=== PATIENT | female | born 1950 | race American Indian/Alaskan Native ===

== ENCOUNTER → 2018-07-19 12:50 | Outpatient (CLI) | payer MEDICARE, OTHER, SELFPAY ==
--- NOTE | 2018-07-19 | DI.MG.S_ITS ---
BILATERAL DIGITAL DIAGNOSTIC MAMMOGRAM 3D/2D POST LUMPECTOMY: 07/19/2018 CLINICAL: Patient reports left axillary pain for the past 2-3 months that radiates along the lateral left breast, described as constant and feeling like a pulled muscle. Patient denies any skin changes or discharge per technologist. Comparison is made to exams dated: 05/26/2017 mammogram, 12/17/2016 mammogram, and 02/28/2015 mammogram - [facility]. There are scattered fibroglandular elements in both breasts. There is a square marker overlying the skin of the left axilla/lateral left breast at the site of the patient's reported focal pain. There is no underlying mammographic abnormality. There are bilateral vascular calcifications. There are stable probable postsurgical changes/metallic densities in the right breast. No significant masses, calcifications, or other findings are seen in either breast. IMPRESSION: INCOMPLETE: NEEDS ADDITIONAL IMAGING EVALUATION No mammographic abnormality to correlate with the site of the patient's reported focal left axillary and lateral left breast pain. Targeted diagnostic ultrasound recommended for further evaluation, which will be performed immediately following this exam. This exam was interpreted at Station ID: [id number]. NOTE: For mammograms, a report in lay terms will be sent to the patient. Approximately 15% of breast malignancies will not be visualized mammographically. In the management of a palpable breast mass, a negative mammogram must not discourage biopsy of a clinically suspicious lesion. Electronically Signed By: Regino Garcia M.D. ecl/:07/19/2018 13:48:37 copy to: [facility] letter sent: Additional Imaging Needed ACR BI-RADS Category 0: Incomplete 3340F
--- NOTE | 2018-07-19 | DI.US.S_ITS ---
LIMITED ULTRASOUND OF LEFT BREAST AND AXILLA: 07/19/2018 CLINICAL: Patient reports left axillary pain for the past 2-3 months that radiates along the lateral left breast, described as constant and feeling like a pulled muscle. Patient denies any skin changes or discharge per technologist. Comparison is made to exams dated: 07/19/2018 mammogram, 05/26/2017 ultrasound, 05/26/2017 mammogram, and 12/17/2016 mammogram - [facility]. Real-time and Doppler ultrasound of the left breast outer aspect and axilla regions were performed. Muller scale images of the real-time examination were reviewed. Targeted ultrasound of the left axilla and lateral left breast was performed in the region of the patient's reported focal pain. No underlying breast mass or abnormality is identified. IMPRESSION: NEGATIVE 1) No ultrasound findings to explain patient's reported focal pain in the left axilla and lateral left breast. Recommend clinical follow-up for further evaluation and management of the patient's reported symptoms. 2) There is no sonographic evidence of malignancy in the imaged left breast and axilla. Return to annual screening mammography is recommended. The patient is advised to monitor her breasts and to return sooner for re-evaluation should she feel anything grow or change. This exam was interpreted at Station ID: [id number]. Electronically Signed By: Regino Garcia M.D. ecl/:07/19/2018 15:09:52 copy to: [facility] letter sent: Clinical Evaluation Ultrasound BI-RADS: 1 Negative
== END ==
PROVIDERS: Visit Provider Family Medicine
DX: R92.8 Other abnormal and inconclusive findings on diagnostic imaging of breast (principal); N64.4 Mastodynia
CPT/HCPCS: 76642; 77066; G0279

== ENCOUNTER → 2018-09-07 11:52 | Outpatient (CLI) | payer MEDICARE, OTHER, SELFPAY ==
--- NOTE | 2018-09-07 | DI.RAD.S_ITS ---
PROCEDURE: XR CHEST 2V INDICATIONS: Acute Bronchitis TECHNIQUE: 2 views of the chest were acquired. COMPARISON: [facility], , CHEST 2 VIEW, 09/09/2011, 15:05. FINDINGS: Surgical changes and devices: None. Lungs and pleura: No pleural effusions or pneumothorax. Increased bronchovascular markings in bilateral hilar region are seen with mild bronchial wall thickening consistent with patient's history of bronchitis. No focal infiltrate is seen. Mediastinum: Mediastinal contours are normal. Heart size is normal. Bones and chest wall: No suspicious bony abnormalities. Soft tissues appear unremarkable. IMPRESSION: Findings consistent with reactive airway disease such as bronchitis. No focal infiltrate. Dictated by: Diego Iyer M.D. on 09/07/2018 at 12:40 Approved by: Diego Iyer M.D. on 09/07/2018 at 12:42
== END ==
PROVIDERS: Visit Provider Family Medicine
DX: J20.9 Acute bronchitis, unspecified (principal)
CPT/HCPCS: 71046

== ENCOUNTER → 2019-06-19 17:00 | Outpatient (CLI) | payer MEDICARE, OTHER, SELFPAY ==
--- NOTE | 2019-06-19 18:13 | DI.RAD.S_ITS ---
PROCEDURE: XR CHEST 2V INDICATIONS: CHRONIC COUGH TECHNIQUE: 2 views of the chest were acquired. COMPARISON: [facility], CR, XR CHEST 2V, 09/07/2018, 12:08. FINDINGS: Surgical changes and devices: Surgical clips in the right upper abdomen and axilla are again noted. Surgical clips in the right breast are also noted. Lungs and pleura: Previously noted increased bronchovascular markings in the perihilar region with perihilar airway thickening does not appear as prominent on today's evaluation. No focal consolidations. Lungs are otherwise clear. No pleural effusions or pneumothorax. Mediastinum: Mediastinal contours are normal. Heart size is normal. Bones and chest wall: No suspicious bony abnormalities. Soft tissues appear unremarkable. IMPRESSION: Chest without acute cardiopulmonary abnormalities. No focal airspace disease. Dictated by: Malick Dejesus M.D. on 06/20/2019 at 12:50 Approved by: Malick Dejesus M.D. on 06/20/2019 at 12:54
== END ==
PROVIDERS: Visit Provider Physician Assistant
DX: R05 Cough (principal)
CPT/HCPCS: 71046

== ENCOUNTER → 2019-06-25 08:39 | Outpatient (CLI) | payer MEDICARE, OTHER, SELFPAY ==
--- NOTE | 2019-06-25 | DI.CT.S_ITS ---
PROCEDURE: CT CHEST WO CON INDICATIONS: CHRONIC COUGH TECHNIQUE: Noncontrast 5 mm thick sections acquired from the pulmonary apices to the posterior costophrenic angles. 1 mm lung window, 5 mm thick coronal and sagittal and 7 mm axial MIP reformats were then acquired. For radiation dose reduction, the following was used: automated exposure control, adjustment of mA and/or kV according to patient size. COMPARISON: [facility], CT, ABDOMEN/PELVIS WITH CONTRAST, 07/04/2012, 13:04. FINDINGS: Image quality: Excellent. Lungs and pleura: No acute consolidation. 2 mm nodule seen in the left upper lobe on image 137 series 3 is indeterminate and could be followup with one-year interval noncontrast chest CT. No pleural effusions or pneumothorax. Central and peripheral airways are patent and normal in caliber. Mediastinum: Heart size is normal. Coronary artery calcifications are present. No pericardial effusion. No mediastinal adenopathy by size criteria. Thoracic aorta and central pulmonary arteries are normal in size. Esophagus is normal in caliber. No hiatal hernia. Bones and chest wall: No suspicious bony lesions. No vertebral body compression fractures. No axillary or supraclavicular adenopathy by size criteria. Thyroid gland unremarkable. Abdomen: Mild questionable circumferential wall thickening of the lower esophagus although this could be better assessed with endoscopy if there is sufficient clinical suspicion. Presumed hypoattenuating hepatic cysts appear grossly unchanged at 2012 IMPRESSION: No acute consolidation. Indeterminate 2 mm left upper lobe pulmonary nodule which could be assessed with one-year interval noncontrast chest CT surveillance. Coronary artery disease. Additional chronic and incidental findings as above. Dictated by: Luis Alfredo Macdonald M.D. on 06/25/2019 at 13:29 Approved by: Luis Alfredo Macdonald M.D. on 06/25/2019 at 13:38
== END ==
PROVIDERS: PCP Family Medicine; Visit Provider Physician Assistant
DX: R05 Cough (principal); R91.1 Solitary pulmonary nodule; I25.10 Atherosclerotic heart disease of native coronary artery without angina pectoris
CPT/HCPCS: 71250

== ENCOUNTER → 2020-04-30 11:07 | Outpatient (CLI) | payer MEDICARE, OTHER, SELFPAY ==
--- NOTE | 2020-04-30 | DI.MG.S_ITS ---
BILATERAL DIGITAL SCREENING MAMMOGRAM 3D/2D WITH CAD POST LUMPECTOMY: 04/30/2020 CLINICAL: Routine screening. Breast cancer. Comparison is made to exams dated: 07/19/2018 mammogram, 12/17/2016 mammogram, 02/28/2015 mammogram, and 05/26/2017 mammogram - [facility]. There are scattered fibroglandular elements in both breasts. Current study was also evaluated with a Computer Aided Detection (CAD) system. There are benign post operative findings in the right breast. No significant masses, calcifications, or other findings are seen in either breast. There has been no significant interval change. IMPRESSION: BENIGN There is no mammographic evidence of malignancy. A 1 year screening mammogram is recommended. This exam was interpreted at Station ID: [id number]. NOTE: For mammograms, a report in lay terms will be sent to the patient. Approximately 15% of breast malignancies will not be visualized mammographically. In the management of a palpable breast mass, a negative mammogram must not discourage biopsy of a clinically suspicious lesion. Electronically Signed By: Sven gambino/elisa:04/30/2020 11:49:36 copy to: [facility] letter sent: Normal Exam ACR BI-RADS Category 2: Benign Finding(s) 3342F
== END ==
PROVIDERS: PCP Family Medicine; Referring Provider Family Medicine; Visit Provider Family Medicine
DX: Z12.31 Encounter for screening mammogram for malignant neoplasm of breast (principal); Z85.3 Personal history of malignant neoplasm of breast
CPT/HCPCS: 77063; 77067

== ENCOUNTER → 2020-08-11 12:20 | Outpatient (CLI) | payer MEDICARE, OTHER, SELFPAY ==
--- NOTE | 2020-08-11 | DI.RAD.S_ITS ---
PROCEDURE: XR HIP W PEL IF DONE LT MIN 4V INDICATIONS: LT HIP PAIN TECHNIQUE: AP pelvis with lateral view(s) of the left and right hip(s). COMPARISON: None. FINDINGS: Bones: No fractures or dislocations. Lumbar spine fixation hardware partially visualized. Pelvic ring appears intact. No suspicious bony lesions. Mild bilateral hip joint degeneration. Soft tissues: The visualized bowel gas pattern is normal. No suspicious soft tissue calcifications. IMPRESSION: Mild bilateral hip joint degeneration Dictated by: Luis Alfredo Macdonald M.D. on 08/11/2020 at 13:34 Approved by: Luis Alfredo Macdonald M.D. on 08/11/2020 at 13:43
== END ==
PROVIDERS: PCP Family Medicine; Referring Provider Family Medicine; Visit Provider Family Medicine
DX: M25.552 Pain in left hip (principal); M16.0 Bilateral primary osteoarthritis of hip
CPT/HCPCS: 73522

== ENCOUNTER 2020-11-26 12:00 | Emergency (ER) | payer MEDICARE, OTHER, SELFPAY ==
[2020-11-26 12:16] VITALS: BP 188/85; PULSE 65; RESP 18; TEMP 36.2; O2SAT 97; BMI 43.4
--- NOTE | 2020-11-26 12:42 | DI.CT.S_ITS ---
PROCEDURE: CT HEAD/BRAIN WO CON INDICATIONS: dizzy TECHNIQUE: Noncontrast 4.5 mm thick angled axial sections acquired from the foramen magnum to the vertex, with coronal and sagittal reformats. For radiation dose reduction, the following was used: automated exposure control, adjustment of mA and/or kV according to patient size. COMPARISON: [facility]ated [facility], CT, HEAD WITHOUT CONTRAST, 10/06/2017, 9:44. FINDINGS: Image quality: Excellent. CSF spaces: Basal cisterns are patent. No extra-axial fluid collections. Ventricles are normal in size and shape. Brain: No midline shift. No intracranial masses or hemorrhage. Muller-white matter interface is normal. Skull and face: Calvarium and visualized facial bones are intact, without suspicious lesions. Sinuses: Visualized sinuses and mastoids are clear. IMPRESSION: No acute intracranial finding. Dictated by: Alfonso Mcarthur M.D. on 11/26/2020 at 12:55 Approved by: Alfonso Mcarthur M.D. on 11/26/2020 at 12:56
[2020-11-26 12:50] LABS: Add Manual Diff / Slide Review NO; Basophils Absolute Auto 0 /uL (0-100); Basophils Percent Auto 0.6 % (0-2); Eosinophils Absolute Auto 0 /uL (0-450); Eosinophils Percent Auto 0.2 % (2-4); Hematocrit 41.3 % (36-46); Hemoglobin 14.2 g/dL (12.0-16.0); Lymphocytes Absolute Auto 1700 /uL (1100-4500); Lymphocytes Percent Auto 31.8 % (25-40); Mean Corpuscular HGB Conc 34.3 % (30-36); Mean Corpuscular Hemoglobin 29.9 PG (26-34); Mean Corpuscular Volume 87.2 fL (80-100); Monocytes Absolute Auto 700 /uL (0-900); Monocytes Percent Auto 13.4 % (3-14); Neutrophils Absolute Auto 3000 /uL (1500-7000); Platelet Count 258 X10^3/uL (150-400); Red Blood Cell Count 4.73 X10^6/uL (4.0-5.2); Red Cell Distribution Width 13.4 % (11.6-14.8); White Blood Cell Count 5.5 X10^3/uL (4.5-11.0)
[2020-11-26 12:55] LABS: Lipase 93 U/L (23-300)
[2020-11-26 12:56] LABS: Alanine Aminotransferase 47 IU/L (<35); Albumin 4.5 g/dL (3.5-5.0); Albumin Globulin Ratio 1.4 (1.0-2.8); Alkaline Phosphatase 146 U/L (38-126); Aspartate Aminotransferase 42 IU/L (14-36); BUN Creatinine Ratio 18.4 (6-22); Bilirubin Total 0.5 mg/dL (0.2-1.3); Blood Urea Nitrogen 14 mg/dL (7-17); Calcium 9.7 mg/dL (8.4-10.2); Carbon Dioxide 27 mmol/L (22-32); Chloride 107 mmol/L (98-107); Creatine Kinase 79 U/L (30-135); Estimated Glomerular Filt Rate > 60.0 mL/min (>60); Globulin 3.2 g/dL (1.7-4.1); Glucose 118 mg/dL (80-110); HEMOLYSIS < 15 (0-50); Potassium 3.8 mmol/L (3.4-5.1); Sodium 141 mmol/L (137-145); Total Protein 7.7 g/dL (6.3-8.2)
--- NOTE | 2020-11-26 13:04 | ED_ITS ---
HPI - Dizziness General Chief Complaint: Dizziness Stated Complaint: SOB and R ear pain Time Seen by Provider: 11/26/20 12:28 Source: patient and EMS Mode of arrival: EMS Limitations: no limitations History of Present Illness HPI Narrative: Patient is a 70-year-old female history of vertigo presenting with dizziness and right ear pain which started yesterday morning. She says the dizziness significantly worse with movement but does improve when she lays still. Typically when she has vertigo she lays with her head off the bed and it gets better. That was not working. She went to her primary care provider's office today today who sent her to the ER for further evaluation. She says this is not her typical vertigo. She feels nauseated she has not vomited. She denies any chest pain palpitations or shortness of breath. She does no numbness tingling or weakness facial droop or difficulty speaking. MD complaint: dizziness Onset (ago): day(s) (1) Timing: sudden onset Description: room spinning History of similar episodes: Yes History of trauma: No Severity: moderate Related Data Previous Rx's Medication Instructions Recorded triamterene-hydrochlorothiazid 1 cap PO QDAY #90 cap 05/31/17 [Dyazide] oxybutynin chloride 2.5 mg PO BID #30 tab 11/01/17 doxycycline hyclate 100 mg PO BID #40 tab 11/17/17 levothyroxine 88 mcg tablet 88 mcg PO SEE INSTRUCTIONS #30 tab 01/30/18 omeprazole 40 mg capsule,delayed 40 mg PO HS #30 cap 01/30/18 release atenolol 50 mg tablet 50 mg PO QDAY #90 tab 02/28/18 potassium chloride 20 mEq 20 meq PO DAILY #30 tab 04/04/18 tablet,extended release(part/cryst) ciprofloxacin-dexamethasone 4 drp EAR-RIGHT BID 7 Days #7.5 ml 11/26/20 meclizine 25 mg PO TID PRN #10 tab 11/26/20 ondansetron 4 mg PO Q8H PRN #10 tab 11/26/20 Allergies Allergy/AdvReac Type Severity Reaction Status Date / Time adhesive [ADHESIVE] Allergy Mild ITCHING Unverified 01/04/18 13:02 hydrocodone [HYDROCODONE] Allergy Mild VOMITING Unverified 01/04/18 13:02 oxycodone [OXYCODONE] Allergy Mild VOMITING Unverified 01/04/18 13:02 Penicillins [PENICILLINS] Allergy Mild YEAST Unverified 01/04/18 13:02 INFECTION Review of Systems Review of Systems ROS Unobtainable: All systems reviewed & are unremarkable except as noted in HPI and below Constitutional Constitutional: Denies chills, Denies fever(s), Denies lethargy and Denies weakness ENT Ears, Nose, Mouth, and Throat: Reports dizziness Cardiovascular Cardiovascular: Denies chest pain, Denies rapid heart rate, Denies irregular heart rhythm, Denies dyspnea and Denies dyspnea on exertion Respiratory Respiratory: Denies cough, Denies dyspnea, Denies dyspnea on exertion and Denies wheezing Gastrointestinal Gastrointestinal: Denies abdominal pain, Denies change in bowel habits, Denies diarrhea, Denies nausea and Denies vomiting Musculoskeletal Musculoskeletal: Denies myalgias and Denies muscle cramps Integumentary/Breasts Skin/Breast: Denies pruritus, Denies erythema, Denies rash and Denies wounds Neurologic Neurologic: Reports as per HPI, Reports dizziness, Denies lack of coordination, Denies localized weakness, Denies restless legs and Denies weakness Allergic/Immunologic Allergic/Immunologic: Denies wheezing Patient History Surgical History Status post breast lumpectomy Status post dilation and curettage Status post dilation and curettage Status post hysteroscopy Social History Smoking Status: Never smoker Smoking Status: Never smoker Substance Use Type: does not use Exam Initial Vital Signs Initial Vital Signs: Vital Signs Temperature 97.2 F L 11/26/20 12:16 Pulse Rate 65 11/26/20 12:16 Respiratory Rate 18 11/26/20 12:16 Blood Pressure 188/85 H 11/26/20 12:16 Pulse Oximetry 97 11/26/20 12:16 GENERAL: Well-appearing, well-nourished and in no acute distress. HEENT: Head atraumatic,EOMI, pupils reactive, face symmetric, moist mucous membranes EAR: Right here mild drainage in whiteness no erythema slight tenderness to the external ear mild swelling of the canal CARDIOVASCULAR: Regular rate and rhythm without murmurs, rubs or gallops. RESPIRATORY: Breath sounds equal bilaterally, no wheezes rales or rhonchi. ABDOMEN: Soft, nontender. Normoactive bowel sounds all 4 quadrants. No guardin g or rebound. EXTREMITIES: Normal range of motion, no clubbing or edema. Neurovascularly intact NEUROLOGICAL: Alert and oriented x4.Normal gait and speech. Cranial nerves II through XII grossly intact. Good [id number], good [id number], strength equal bilaterally, no dysarthria or aphasia, sensation in tact to soft touch bilaterally, no visual changes, no facial droop SKIN: Warm, dry, no laceration, no petechiae, no rashes or lesions. Scores NIH Stroke Scale Level of Conciousness: Alert, keenly responsive Ask month/age: Answers both questions correctly. Open/close eyes, close hand: Performs both tasks correctly Best gaze horizontal: Normal Visual elizodno: No visual loss Facial palsy: Normal symetrical movement Left arm drift: No drift for full 10 sec Right arm drift: No drift for full 10 sec Left leg drift: No drift for full 5 sec Right leg drift: No drift for full 5 sec Limb ataxia: Absent Sensory on face/arms/legs: Normal, no sensory loss Best language: No aphasia, normal Dysarthria: Normal Extinction or inattention: No abnormality Total NIH Stroke scale score: 0 Course Orders Ordered: ED Orders 11/26/20 12:02 EKG-12 Lead Routine 11/26/20 12:33 Complete Blood Count AUTO DIFF Stat Comprehensive Metabolic Panel Stat Lipase Stat Troponin & CK Cardiac Panel Stat 11/26/20 12:42 CT head/brain wo con Stat Discontinued Medications Sodium Chloride (Normal Saline 0.9%) 1,000 mls @ 1,000 mls/hr IV CONT JAZ Last Infusion: 11/26/20 14:38 Dose: 0 mls/hr Documented by: Admin: 11/26/20 13:14 Dose: 1,000 mls/hr Documented by: DAJUANONER Meclizine HCl (Meclizine Hcl 12.5 Mg Tablet) 25 mg PO NOW ONE Stop: 11/26/20 12:38 Last Admin: 11/26/20 13:15 Dose: 25 mg Documented by: FABRICIOR Ondansetron HCl (Ondansetron 4 Mg/2 Ml Inj) 4 mg IV NOW ONE Stop: 11/26/20 12:59 Last Admin: 11/26/20 13:14 Dose: 4 mg Documented by: BTONER Vital Signs Vital signs: Vital Signs - 8 hr 11/26/20 12:16 11/26/20 15:20 11/26/20 16:00 Temperature 97.2 F L Pulse Rate 65 60 62 Respiratory Rate 18 18 18 Blood Pressure 188/85 H 169/76 H 164/73 H Pulse Oximetry 97 99 99 MDM - Dizziness Lab Data Attestation: I reviewed the patient's lab results. Result diagrams: 11/26/20 12:33 11/26/20 12:33 Labs: Lab Results 11/26/20 11/26/20 11/26/20 Range/Units 12:33 12:33 12:33 WBC 5.5 (4.5-11.0) X10^3/uL RBC 4.73 (4.0-5.2) X10^6/uL Hgb 14.2 (12.0-16.0) g/dL Hct 41.3 (36-46) % MCV 87.2 (80-100) fL MCH 29.9 (26-34) PG MCHC 34.3 (30-36) % RDW 13.4 (11.6-14.8) % Plt Count 258 (150-400) X10^3/uL Neut % (Auto) 54.0 (50-75) % Lymph % (Auto) 31.8 (25-40) % [place] % (Auto) 13.4 (3-14) % Eos % (Auto) 0.2 L (2-4) % Baso % (Auto) 0.6 (0-2) % Neut # (Auto) 3000 (2908-0497) /uL Lymph # (Auto) 1700 (9761-5172) /uL [place] # (Auto) 700 (0-900) /uL Eos # (Auto) 0 (0-450) /uL Baso # (Auto) 0 (0-100) /uL Sodium 141 (137-145) mmol/L Potassium 3.8 (3.4-5.1) mmol/L Chloride 107 (98-107) mmol/L Carbon Dioxide 27 (22-32) mmol/L BUN 14 (7-17) mg/dL Creatinine 0.76 (0.52-1.04) mg/dL Estimated GFR > 60.0 (>60) mL/min BUN/Creatinine Ratio 18.4 (6-22) Glucose 118 H (80-110) mg/dL Calcium 9.7 (8.4-10.2) mg/dL Total Bilirubin 0.5 (0.2-1.3) mg/dL AST 42 H (14-36) IU/L ALT 47 H (<35) IU/L Alkaline Phosphatase 146 H (38-126) U/L Total Creatine Kinase 79 (30-135) U/L CK-MB (CK-2) TNP CK-MB (CK-2) Rel Index TNP Troponin I < 0.012 (0.01-0.034) ng/mL Total Protein 7.7 (6.3-8.2) g/dL Albumin 4.5 (3.5-5.0) g/dL Globulin 3.2 (1.7-4.1) g/dL Albumin/Globulin Ratio 1.4 (1.0-2.8) Lipase 93 (23-300) U/L Imaging Data CT scan - head: Radiologist's Impression: PROCEDURE: CT HEAD/BRAIN WO CON INDICATIONS: dizzy TECHNIQUE: Noncontrast 4.5 mm thick angled axial sections acquired from the foramen magnum to the vertex, with coronal and sagittal reformats. For radiation dose reduction, the following was used: automated exposure control, adjustment of mA and/or kV according to patient size. COMPARISON: Merged With [facility], CT, HEAD WITHOUT CONTRAST, 10/06/2017, 9:44. FINDINGS: Image quality: Excellent. CSF spaces: Basal cisterns are patent. No extra-axial fluid collections. Ventricles are normal in size and shape. Brain: No midline shift. No intracranial masses or hemorrhage. Muller-white matter interface is normal. Skull and face: Calvarium and visualized facial bones are intact, without suspicious lesions. Sinuses: Visualized sinuses and mastoids are clear. IMPRESSION: No acute intracranial finding. Dictated by: Alfonso Mcarthur M.D. on 11/26/2020 at 12:55 ECG Data Attestation: I personally reviewed and interpreted this ECG as follows: Prior ECG tracings: not available for review Interpretation: Normal sinus rhythm rate 66 p.r. interval 194 QRS [address] changes no T-wave inversions MDM Narrative Medical decision making narrative: Patient is overall feeling much better after meclizine she is ambulatory to the restroom without any difficulty. She has a history of vertigo this seems like it was exacerbated version of vertigo. She does have mild right otitis externa will start her on drops to see if it improves. She has no focal deficits. Overall feels better and ready and able to go home. Discharge Plan Departure Patient Disposition: Home Clinical Impression: Vertigo Otitis externa Qualifiers: Otitis externa type: diffuse Chronicity: acute Laterality: right Qualified Code(s): H60.311 - Diffuse otitis externa, right ear Instructions: DI for Vertigo Activity Restrictions/Additional Instructions: *You have been diagnosed with Vertigo *What to do: Increase activity as tolerated. Increase fluid intake *Continue to take medications as directed--> SENT TO [facility] Meclizine 25 mg every 8 hours if needed for dizziness Zofran 4 mg every 8 hours if needed for nausea or vomiting Cipro drops 4 drops in right ear twice a day for 7 days *Follow up with your primary care provider in 2-3 days *Return to ER if you should have worsening dizziness, chest pain, palpitation or any new, worsening or concerning symptoms Prescriptions: New ondansetron 4 mg tablet,disintegrating 4 mg PO Q8H PRN (Reason: nausea and vomiting) Qty: 10 RF: 0 meclizine 25 mg tablet 25 mg PO TID PRN (Reason: dizziness) Qty: 10 RF: 0 ciprofloxacin-dexamethasone 0.3-0.1 % drops,suspension 4 drp EAR-RIGHT BID 7 Days Qty: 7.5 RF: 0 No Action triamterene-hydrochlorothiazid [Dyazide] 37.5 MG/25 MG capsule 1 cap PO QDAY Qty: 90 RF: 3 oxybutynin chloride 5 MG tablet 2.5 mg PO BID Qty: 30 RF: 11 doxycycline hyclate 100 MG tablet 100 mg PO BID Qty: 40 RF: 0 omeprazole 40 mg capsule,delayed release(DR/EC) 40 mg PO HS Qty: 30 RF: 5 levothyroxine 88 mcg tablet 88 mcg PO SEE INSTRUCTIONS Qty: 30 RF: 11 atenolol 50 mg tablet 50 mg PO QDAY Qty: 90 RF: 3 potassium chloride [Klor-Con M20] 20 mEq tablet,ER particles/crystals 20 meq PO DAILY Qty: 30 RF: 2 Referrals: Garfield Edwards MD [Primary Care Provider] -
[2020-11-26 13:07] LABS: Troponin I < 0.012 ng/mL (0.01-0.034)
[2020-11-26] MEDS: ONDANSETRON 4 MG/2 ML INJ IV (13:14)
[2020-11-26] MEDS: SODIUM CHLORIDE 0.9% 1,000 ML 1000 ML IV (13:14)
[2020-11-26] MEDS: MECLIZINE HCL 12.5 MG TABLET 25 MG PO (13:15)
--- NOTE | 2020-11-26 14:28 | PC.NURSE ---
offered to move pt to a private room, she said she was comfortable where she is, she is feeling better.
[2020-11-26 15:20] VITALS: BP 169/76; PULSE 60; RESP 18; O2SAT 99
[2020-11-26 16:00] VITALS: BP 164/73; PULSE 62; RESP 18; O2SAT 99
== END 2020-11-26 16:02 | disposition home or self-care (01) ==
PROVIDERS: Emergency Provider Emergency Medicine; PCP Family Medicine
DX: R42 Dizziness and giddiness (principal); H60.311 Diffuse otitis externa, right ear
CPT/HCPCS: 36415; 70450; 80053; 82550; 83690; 84484; 85025; 93005; 96361; 96374; 99284; J2405

== ENCOUNTER → 2021-01-07 13:34 | Outpatient (CLI) | payer MEDICARE, OTHER, SELFPAY ==
--- NOTE | 2021-01-07 | DI.MG.S_ITS ---
BILATERAL DIGITAL DIAGNOSTIC MAMMOGRAM 3D/2D POST LUMPECTOMY: 01/07/2021 CLINICAL: Right breast lump. Comparison is made to exams dated: 04/30/2020 mammogram, 07/19/2018 mammogram, and 12/17/2016 mammogram - [facility]. There are scattered fibroglandular elements in both breasts. There is a 1.2 cm irregular high density mass with a spiculated margin in the right breast at 11 o'clock middle depth. This is confirmed with additional views. This has increased considerably in size and correlates as palpated. There is architectural distortion associated with the mass. No other significant masses, calcifications, or other findings are seen in either breast. IMPRESSION: INCOMPLETE: NEEDS ADDITIONAL IMAGING EVALUATION The 1.2 cm irregular high density mass in the right breast is suspicious for malignancy, but remains indeterminate. An ultrasound is recommended. This was performed immediately following this exam. This exam was interpreted at Station ID: [id number]. NOTE: For mammograms, a report in lay terms will be sent to the patient. Approximately 15% of breast malignancies will not be visualized mammographically. In the management of a palpable breast mass, a negative mammogram must not discourage biopsy of a clinically suspicious lesion. Electronically Signed By: Jayashree ayala/:01/07/2021 14:31:13 copy to: [facility] BI-RADS Category 0: Incomplete [id number]
--- NOTE | 2021-01-07 | DI.US.S_ITS ---
LIMITED ULTRASOUND OF RIGHT BREAST AND AXILLA: 01/07/2021 CLINICAL: Palpable right breast lump. Comparison is made to exams dated: 01/07/2021 mammogram, 04/30/2020 mammogram, 07/19/2018 ultrasound, 07/19/2018 mammogram, 05/26/2017 ultrasound, and 05/26/2017 mammogram - [facility]. Color flow and real-time ultrasound of the right breast 11 o'clock, and axilla regions were performed. Muller scale images of the real-time examination were reviewed. There is a 1.2 cm x 1.2 cm x 2 cm irregular mass with a spiculated margin in the right axillary tail 7 cm from the nipple. This irregular mass displays posterior acoustic shadowing. This correlates as palpated and with mammography findings. Color flow imaging demonstrates that there is vascularity present. No suspicious axillary lymph nodes. IMPRESSION: SUSPICIOUS OF MALIGNANCY The 1.2 cm x 1.2 cm x 2 cm irregular mass most likely is carcinoma and is at a high suspicion for malignancy. An ultrasound guided biopsy is recommended. Findings and recommendations were discussed with the patient by Dr. Flaherty at time of exam. This exam was interpreted at Station ID: [id number]. Electronically Signed By: Jayashree ayala/:01/07/2021 17:13:41 copy to: HARDY HARMON letter sent: Biopsy Required Ultrasound BI-RADS: 4c High suspicion of malignancy
== END ==
PROVIDERS: PCP Family Medicine; Referring Provider Family Medicine; Visit Provider Family Medicine
DX: R92.8 Other abnormal and inconclusive findings on diagnostic imaging of breast (principal); N63.31 Unspecified lump in axillary tail of the right breast
CPT/HCPCS: 76642; 77066; G0279

== ENCOUNTER → 2021-01-16 07:38 | Outpatient (CLI) | payer MEDICARE, OTHER, SELFPAY ==
--- NOTE | 2021-01-16 | PATH_ITS ---
[facility] Accession Number: [id number] . 01 Material submitted: . breast - RIGHT BREAST MASS 11:00 7CMFN . 01 Diagnosis: A. Right Breast Mass, 11 o'clock, 7 cm from the Nipple, Needle Core Biopsy: Invasive (ductal) carcinoma, grade 2 of 3 ([place] combined histologic grade, total score 7/9) with the following features: 1. Nuclear pleomorphism: High. (3/3) 2. Mitotic rate: Low. (1/3) 3. Tubular differentiation: None. (3/3) 4. Size of invasive carcinoma: Present on six cores, single largest dimension at least 9 mm in this sample. 5. Ductal carcinoma in situ: Present, with the following features: - Nuclear grade: High. - Necrosis: Present (small foci). 6. Calcifications: Present, in association with ductal carcinoma in situ. 7. Lymphatic invasion: Not identified. 8. Prognostic markers: - Estrogen receptor: Positive (>90%, Strong). - Progesterone receptor: Positive (10%, Weak). - HER2 status: Positive for protein overexpression by immunohistochemistry (3+). [facility] 01/20/2021 2346 Local . 01 Comment: Dr. Abbott reviewed the Her2 immunohistochemistry and concurs with the interpretation. . 01 Electronically signed: Agustina Cuevas MD, Pathologist NPI- [id number] . 01 Gross description: . Please note for breast formalin fixation time, the specimen was placed in formalin on 01/16/21 at 0913. . Received in formalin, labeled with the patient's name and right breast mass 1 o'clock 7 cm FN, are six cores of yellow-zavala fibrofatty breast tissue and multiple smaller fragments, 0.5-1.3 cm length, 0.3 cm diameter and 1.0 x 1.0 x 0.2 cm in aggregate. The specimen is entirely submitted. . SUMMARY OF SECTIONS: A1-A2. Three cores each. A3. Multiple pieces. (ID:[id number]) /R 01/17/2021 1903 Local . 01 Microscopic: . A panel of immunostains is obtained to assess the invasive carcinoma, with appropriately staining external controls. The invasive carcinoma shows the following immunoprofile: . E-Cadherin (A1): Positive (membranous), excluding lobular phenotype. Beta Catenin (A1): Positive (membranous), excluding lobular phenotype. . In addition, areas in blocks A1 and A2 with features suspicious for lymphatic space invasion, are evaluated with D2-40 and p63; the findings are as follows, and do not confirm lymphatic space invasion: . D2-40: Negative around atypical nests of interest. P63: Negative around atypical nests of interest. . Predictive marker immunohistochemical studies are performed on block A2 with the invasive carcinoma showing the following results: . Estrogen receptor (SP1): Positive (more than 90% tumor cells staining, strong intensity). Progesterone receptor (1E2): Positive (10% tumor cells staining, weak intensity). Her2(4B5): Positive for protein overexpression by immunohistochemistry (3+). . Internal controls for ER and UT are positive. Cold ischemic time is <5 minutes. The scoring criteria for breast biomarkers by immunohistochemistry is based on the ASCO/CAP guidelines (Flakita AC et al, J Clin Oncol: 2017Apr 04;36(20):8709-8482 and Cisco ME et al, Arch Pathol Lab Med: 2009;134(6):907-22). Deparaffinized sections of formalin fixed tissue (along with appropriate positive controls) are incubated with the above antibody(s). Using the automated [place] stainer, tissue is incubated with the designated antibody which is then localized by a non-biotin, dual polymer detection system. The external controls are reviewed for appropriate reactivity and found to be adequate. Results on the target cell population are indicated above. These tests have not been validated on decalcified tissue. This test was developed and its performance characteristics determined by [employer]. It has not been cleared or approved by the U.S. Food and Drug Administration. The FDA has determined that such clearance or approval is not necessary. This test is used for clinical purposes. It should not be regarded as investigational or for research. . 01 Pathologist provided ICD-10: C50.911 . 01 CPT . 400995, 109106, 861887, 092623, O74126, S32324 Performed at: [address] [facility] [place], [place], [place] [id number] MD Jose Angel Du MD Phone: [phone]
--- NOTE | 2021-01-16 | DI.MG.S_ITS ---
UNILATERAL RIGHT DIGITAL DIAGNOSTIC MAMMOGRAM POST LUMPECTOMY POST-EXCISIONAL BIOPSY: 01/16/2021 CLINICAL: Right breast mass. Comparison is made to exams dated: 01/07/2021 mammogram, 04/30/2020 mammogram, and 07/19/2018 mammogram - [facility]. There are scattered fibroglandular elements in right breast. There is a marker clip in the appropriate position in the right breast at 11 o'clock posterior depth. This marker clip placement is at the biopsy site. IMPRESSION: POST PROCEDURE MAMMOGRAM FOR MARKER PLACEMENT There was a successful marker clip placement in the right breast posterior depth. This exam was interpreted at Station ID: [id number]. NOTE: For mammograms, a report in lay terms will be sent to the patient. Approximately 15% of breast malignancies will not be visualized mammographically. In the management of a palpable breast mass, a negative mammogram must not discourage biopsy of a clinically suspicious lesion. Electronically Signed By: Luis Alfredo kong/:01/16/2021 14:58:40 copy to: HARDY HARMON ACR BI-RADS Category Post-procedure mammogram for marker placement
--- NOTE | 2021-01-16 | DI.US.S_ITS ---
ULTRASOUND GUIDED BIOPSY RIGHT BREAST USING VACUUM DEVICE WITH MARKING DEVICE INSERTED: 01/16/2021 CLINICAL: Right breast mass. PATIENT CONSENT: Risks (minor bleeding, infection, vasovagal reaction and repeat procedure), benefits and alternatives were explained to the patient and written informed consent was obtained. Correlation is made to exams dated: 01/16/2021 mammogram, 01/07/2021 ultrasound, 01/07/2021 mammogram, 04/30/2020 mammogram, 07/19/2018 mammogram, and 12/17/2016 mammogram - [facility]. An ultrasound guided biopsy using real-time ultrasound was performed for the mass located in the right breast at 11 o'clock posterior depth. The skin was prepped in the usual manner. Local anesthetic was administered to the access site. A small incision was made in the breast. The abnormality was approached from the lateral aspect. A biopsy needle was placed adjacent to the abnormality under ultrasound guidance. Once the needle was documented to be in the correct location, eight specimens were obtained using the Mammotome biopsy system. A clip was inserted into the biopsy cavity. The specimens were sent to the laboratory for pathological analysis. IMPRESSION: ULTRASOUND GUIDED BIOPSY MALIGNANT Ultrasound guided biopsy of the mass in the right breast at 11 o'clock posterior depth was successful. Pathology indicates malignant invasive ductal carcinoma (ID) and ductal carcinoma in situ (DCIS). Pathology results are concordant with imaging findings. A surgical/oncologic consultation is recommended. This exam was interpreted at Station ID: [id number]. Luis Alfredo kong,aty/:01/21/2021 18:25:36 copy to: HARDY HARMON
== END ==
PROVIDERS: PCP Family Medicine; Referring Provider Family Medicine; Visit Provider Family Medicine
DX: C50.411 Malignant neoplasm of upper-outer quadrant of right female breast (principal); Z17.0 Estrogen receptor positive status [ER+]
CPT/HCPCS: 19083; 77065

== ENCOUNTER → 2022-03-19 12:50 | Outpatient (CLI) | payer MEDICARE, OTHER, SELFPAY ==
--- NOTE | 2022-03-19 | DI.MG.S_ITS ---
UNILATERAL LEFT DIGITAL SCREENING MAMMOGRAM 3D/2D WITH CAD: 03/19/2022 CLINICAL: Routine screening. Personal history of right breast cancer. Comparison is made to exams dated: 10/08/2021 ultrasound - [facility], 01/16/2021 mammogram, 04/30/2020 mammogram, and 07/19/2018 mammogram - [facility]. There are scattered fibroglandular elements in left breast. Current study was also evaluated with a Computer Aided Detection (CAD) system. No significant masses, calcifications, or other findings are seen in the breast. There has been no significant interval change. IMPRESSION: NEGATIVE There is no mammographic evidence of malignancy. A 1 year screening mammogram is recommended. This exam was interpreted at Station ID: [id number]. NOTE: For mammograms, a report in lay terms will be sent to the patient. Approximately 15% of breast malignancies will not be visualized mammographically. In the management of a palpable breast mass, a negative mammogram must not discourage biopsy of a clinically suspicious lesion. Electronically Signed By: Alfonso Mcarthur M.D., jr/elisa:03/19/2022 13:42:02 copy to: HARDY HARMON letter sent: Normal Exam ACR BI-RADS Category 1: Negative [id number]
== END ==
PROVIDERS: PCP Family Medicine; Referring Provider Radiology Diagnostic Radiology; Visit Provider Radiology Diagnostic Radiology
DX: Z12.31 Encounter for screening mammogram for malignant neoplasm of breast (principal); Z85.3 Personal history of malignant neoplasm of breast
CPT/HCPCS: 77063; 77067

== ENCOUNTER → 2022-10-28 11:21 | Outpatient (CLI) | payer MEDICARE, OTHER, SELFPAY ==
--- NOTE | 2022-10-28 11:25 | DI.RAD.S_ITS ---
PROCEDURE: XR LUMBAR SPINE 2-3V INDICATIONS: back pain, bilateral hand and foot pain TECHNIQUE: 3 views of the lumbar spine were acquired. COMPARISON: [facility], , L-SPINE 2-3 VIEWS, 10/30/2013, 14:10. [facility], CR, L-SPINE 2-3 VIEWS, 02/21/2013, 12:16. FINDINGS: Bones: There are 5 lumbar type vertebral bodies. Right posterior fusion hardware with interbody spacers from L3-L5 with good osseous integration. Rsep-pj-bauojotj spondylosis is seen at the other levels. Trace retrolisthesis of L5 on S1 and anterolisthesis of L4 on L5. Soft tissues: Cholecystectomy clips. Moderate fecal loading. IMPRESSION: No acute radiographic abnormality. Expected appearance of L3-L5 fusion hardware. Riff-px-jbkqtuws spondylosis at the other levels. If there is high concern for further derangement, consider MRI evaluation. Dictated by: Mohit Jha M.D. on 10/28/2022 at 14:07 Approved by: Mohit Jha M.D. on 10/28/2022 at 14:08
--- NOTE | 2022-10-28 11:25 | DI.RAD.S_ITS ---
PROCEDURE: XR FOOT RT MIN 3V INDICATIONS: back pain, bilateral hand and foot pain TECHNIQUE: 3 views of the foot were acquired. COMPARISON: [facility], CR, XR FOOT LT MIN 3V, 10/28/2022, 12:51. FINDINGS: Bones: No acute fracture or dislocation visualized. Mild bunion deformity. Polyarticular degenerative changes present, moderate at the 1st MTP joint, mild midfoot DJD also present. Small plantar calcaneal spur. Possible mild tibiotalar joint degenerative changes also present. Soft tissues: No tibiotalar joint effusion. IMPRESSION: No acute osseous abnormality. If symptoms persist, follow-up radiographs and/or CT or MRI may be helpful for further evaluation. Dictated by: Sven Johnson M.D. on 10/28/2022 at 14:11 Approved by: Sven Johnson M.D. on 10/28/2022 at 14:13
--- NOTE | 2022-10-28 11:25 | DI.RAD.S_ITS ---
PROCEDURE: XR HAND LT MIN 3V INDICATIONS: back pain, bilateral hand and foot pain TECHNIQUE: 3 views of the hand(s) acquired. COMPARISON: [facility], CR, XR HAND RT MIN 3V, 10/28/2022, 12:45. FINDINGS: Bones: The bones appear demineralized. No acute fracture or dislocation visualized. Polyarticular degenerative changes present, moderate-severe, largely in a distal distribution involving the base of the thumb. Scattered periarticular lucencies also present indeterminate for subchondral cystic change or erosions. Soft tissues: No suspicious soft tissue calcifications. IMPRESSION: No acute fracture visualized. Polyarticular degenerative changes are present. If symptoms persist, follow-up radiographs and/or CT or MRI may be helpful for further evaluation. Dictated by: Sven Johnson M.D. on 10/28/2022 at 14:04 Approved by: Sven Johnson M.D. on 10/28/2022 at 14:07
--- NOTE | 2022-10-28 11:25 | DI.RAD.S_ITS ---
PROCEDURE: XR FOOT LT MIN 3V INDICATIONS: back pain, bilateral hand and foot pain TECHNIQUE: 3 views of the foot were acquired. COMPARISON: [facility], CR, XR FOOT RT MIN 3V, 10/28/2022, 12:53. [facility], CR, XR HAND RT MIN 3V, 10/28/2022, 12:45. FINDINGS: Bones: No acute fractures or dislocations. No suspicious bony lesions. The bones appear demineralized. Mild bunion deformity. Polyarticular degenerative changes, moderate at the 1st MTP joint, mild at the midfoot. Small plantar and posterior calcaneal spurs. Soft tissues: No tibiotalar joint effusion. IMPRESSION: No acute osseous abnormality. If symptoms persist, follow-up radiographs and/or CT or MRI may be helpful for further evaluation. Dictated by: Sven Johnson M.D. on 10/28/2022 at 14:07 Approved by: Sven Johnson M.D. on 10/28/2022 at 14:11
--- NOTE | 2022-10-28 11:25 | DI.RAD.S_ITS ---
PROCEDURE: XR THORACIC SPINE 2V INDICATIONS: back pain, bilateral hand and foot pain TECHNIQUE: To views of the thoracic spine were acquired. COMPARISON: None. FINDINGS: Bones: Mild overall thoracic spondylosis and minimal wedging of some vertebral bodies. No definitely acute abnormality. Soft tissues: Partially seen left port catheter in the SVC. There are surgical clips. IMPRESSION: Mild spondylosis. If there is high concern for further derangement, consider MRI evaluation. Dictated by: Mohit Jha M.D. on 10/28/2022 at 14:06 Approved by: Mohit Jha M.D. on 10/28/2022 at 14:06
--- NOTE | 2022-10-28 11:25 | DI.RAD.S_ITS ---
PROCEDURE: XR HAND RT MIN 3V INDICATIONS: back pain, bilateral hand and foot pain TECHNIQUE: 3 views of the hand(s) acquired. COMPARISON: [facility], CR, XR HAND LT MIN 3V, 10/28/2022, 12:48. FINDINGS: Bones: The bones appear demineralized. No acute fracture or dislocation identified. Polyarticular degenerative changes present, moderate-severe severity, largely in a distal distribution and at the base of the thumb. Periarticular lucencies also present indeterminate for subchondral cystic change or erosions. Soft tissues: No suspicious soft tissue calcifications. IMPRESSION: No acute fracture or dislocation identified. Polyarticular degenerative changes are present. If symptoms persist, follow-up radiographs and/or CT or MRI may be helpful for further evaluation. Dictated by: Sven Johnson M.D. on 10/28/2022 at 13:59 Approved by: Sven Johnson M.D. on 10/28/2022 at 14:04
== END ==
PROVIDERS: PCP Family Medicine; Referring Provider Physician Assistant; Visit Provider Physician Assistant
DX: M47.814 Spondylosis without myelopathy or radiculopathy, thoracic region (principal); M47.816 Spondylosis without myelopathy or radiculopathy, lumbar region; M54.42 Lumbago with sciatica, left side; M21.612 Bunion of left foot; M21.611 Bunion of right foot; M77.32 Calcaneal spur, left foot; M77.31 Calcaneal spur, right foot; M79.641 Pain in right hand; M79.642 Pain in left hand; M79.671 Pain in right foot; M79.672 Pain in left foot; M54.6 Pain in thoracic spine; Z98.1 Arthrodesis status
CPT/HCPCS: 72070; 72100; 73130; 73630

== ENCOUNTER → 2022-11-11 09:31 | Outpatient (CLI) | payer MEDICARE, OTHER, SELFPAY ==
--- NOTE | 2022-11-11 | DI.RAD.S_ITS ---
PROCEDURE: XR CHEST 2V INDICATIONS: COUGH TECHNIQUE: 2 views of the chest were acquired. COMPARISON: [facility], CR, XR CHEST 2V, 06/19/2019, 18:11. FINDINGS: Surgical changes and devices: Tunneled left port device is present. Surgical clips in the right axilla and right chest. Lungs and pleura: Lungs are clear. No pleural effusions or pneumothorax. Mediastinum: Mediastinal contours are normal. Heart size is normal. Bones and chest wall: No suspicious bony abnormalities. Soft tissues appear unremarkable. IMPRESSION: No acute cardiopulmonary abnormalities or focal airspace disease. Dictated by: Malick Dejesus M.D. on 11/11/2022 at 12:04 Approved by: Malick Dejesus M.D. on 11/11/2022 at 12:05
== END ==
PROVIDERS: PCP Family Medicine; Referring Provider Physician Assistant; Visit Provider Physician Assistant
DX: R05.8 Other specified cough (principal)
CPT/HCPCS: 71046

== ENCOUNTER 2023-05-16 20:00 | Emergency (ER) | payer MEDICARE, OTHER, SELFPAY ==
[2023-05-16] VITALS (12 sets, daily range): BP systolic 143–171; BP diastolic 65–81; PULSE 72–85; RESP 16–27; TEMP 36.7; O2SAT 85–100; BMI 39.3
--- NOTE | 2023-05-16 20:19 | ED.GENADULT ---
HPI - General Adult General Chief complaint: Abdominal Pain Stated complaint: ABD Pain Time Seen by Provider: 05/16/23 20:07 Source: patient and EMS Mode of arrival: EMS Limitations: no limitations History of Present Illness HPI narrative: Patient is a 73-year-old female who is here for evaluation of abdominal pain. She has had abdominal pain for many weeks/months now however it is worse today because she states that earlier today she developed vertigo. She is had vertigo in the past. The vertigo that she has now started rather suddenly. It is worse when she turns her head to the right. Because of the she is been vomiting multiple times throughout the day that has made her abdominal pain worse. She is not tried anything for symptoms. She denies any headaches. Fevers. The abdominal pain is in her epigastric region. She denies any urinary symptoms. No change in bowel habits. Related Data Previous Rx's Medication Instructions Recorded triamterene 37.5 1 cap PO QDAY #90 caps 05/31/17 mg-hydrochlorothiazide 25 mg capsule (Dyazide) oxybutynin chloride 5 mg tablet 2.5 mg PO BID #30 tabs 11/01/17 doxycycline hyclate 100 mg tablet 100 mg PO BID #40 tabs 11/17/17 levothyroxine 88 mcg tablet 88 mcg PO SEE INSTRUCTIONS #30 tabs 01/30/18 omeprazole 40 mg capsule,delayed 40 mg PO HS #30 caps 01/30/18 release atenolol 50 mg tablet 50 mg PO QDAY #90 tabs 02/28/18 potassium chloride 20 mEq 20 meq PO DAILY #30 tabs 04/04/18 tablet,extended release(part/cryst) (Klor-Con M) meclizine 25 mg tablet 25 mg PO TID PRN dizziness #10 tabs 11/26/20 ondansetron 4 mg disintegrating 4 mg PO Q8H PRN nausea and 11/26/20 tablet vomiting #10 tabs meclizine 25 mg tablet 25 mg PO BID PRN motion sickness 05/16/23 #14 tabs ondansetron 4 mg disintegrating 4 mg PO Q6H PRN nausea and 05/16/23 tablet vomiting #10 tabs Allergies Allergy/AdvReac Type Severity Reaction Status Date / Time adhesive [ADHESIVE] Allergy Mild ITCHING Verified 05/16/23 21:03 hydrocodone [HYDROCODONE] Allergy Mild VOMITING Verified 05/16/23 21:03 oxycodone [OXYCODONE] Allergy Mild VOMITING Verified 05/16/23 21:03 Penicillins [PENICILLINS] Allergy Mild YEAST Verified 05/16/23 21:03 INFECTION Sulfa (Sulfonamide Allergy Mild Verified 05/16/23 21:03 Antibiotics) Review of Systems Constitutional Constitutional: Reports system reviewed and no additional complaints, except as documented ENT Ears, Nose, Mouth, and Throat: Reports system reviewed and no additional complaints, except as documented Gastrointestinal Gastrointestinal: Reports system reviewed and no additional complaints, except as documented Genitourinary Genitourinary: Reports system reviewed and no additional complaints, except as documented Integumentary/Breasts Skin/Breast: Reports system reviewed and no additional complaints, except as documented Hematologic/Lymphatic On Anticoagulants: No Patient History Surgical History Status post breast lumpectomy Status post dilation and curettage Status post dilation and curettage Status post hysteroscopy Social History Smoking Status: Never smoker Smoking Status: Never smoker Substance Use Type: does not use Exam Initial Vital Signs Initial Vital Signs: Vital Signs Temperature 98.0 F 05/16/23 20:08 Pulse Rate 82 05/16/23 20:08 Respiratory Rate 20 05/16/23 20:08 Blood Pressure 150/67 H 05/16/23 20:08 Pulse Oximetry 96 05/16/23 20:08 Oxygen Delivery Method Room Air 05/16/23 20:08 HENMT Head: normal to inspection and normocephalic Ears: TM's normal bilaterally Face and sinus: normal facial exam Resp Effort & Inspection: normal respiratory effort Cardio Rate: regular rate GI Inspection: normal to inspection Palpation: soft and tender (Epigastric region) Skin General: no rashes or lesions noted Neuro General: patient alert, patient awake and moves all extremities Cognition: normal cognition Speech: speech normal Extrem General: capillary refill normal Scores GCS Mic coma scale eye opening: Spontaneous Mic coma scale verbal response: Orientated Mic coma scale motor response: Obey commands [place] coma scale total score: 15 Course Orders Ordered: ED Orders 05/16/23 20:11 Complete Blood Count AUTO DIFF Stat Comprehensive Metabolic Panel Stat Lipase Stat 05/16/23 20:19 EKG-12 Lead Stat 05/16/23 20:27 CT abdomen pelvis w con Stat Discontinued Medications Sodium Chloride (Normal Saline 0.9%) 1,000 mls @ 1,000 mls/hr IV BOLUS ONE Stop: 05/16/23 21:12 Last Infusion: 05/16/23 21:35 Dose: 0 mls/hr Documented By: Admin: 05/16/23 20:20 Dose: 1,000 mls/hr Documented By: DENISSE POTASSIUM CHLORIDE IN WATER (Potassium Cl 10 Meq/100 Ml Gala) 10 meq in 100 mls @ 100 mls/hr IV Q1H JAZ Stop: 05/16/23 22:59 Last Infusion: 05/16/23 23:35 Dose: 0 mls/hr Documented By: Admin: 05/16/23 22:15 Dose: 100 mls/hr Documented By: Infusion: 05/16/23 22:04 Dose: 100 mls/hr Documented By: Admin: 05/16/23 21:04 Dose: 100 mls/hr Documented By: DENISSE Meclizine HCl (Meclizine Hcl 12.5 Mg Tablet) 25 mg PO NOW ONE Stop: 05/16/23 20:20 Last Admin: 05/16/23 20:22 Dose: 25 mg Documented By: DENISSE Vital Signs Vital signs: Vital Signs - 8 hr 05/16/23 20:08 05/16/23 21:48 05/16/23 20:09 Temperature 98.0 F Pulse Rate 82 85 Respiratory Rate 20 Blood Pressure 150/67 H Pulse Oximetry 96 97 Oxygen Delivery Method Room Air Nasal Cannula Oxygen Flow Rate 2 05/16/23 20:12 05/16/23 20:12 05/16/23 20:30 Temperature Pulse Rate 83 Respiratory Rate 23 Blood Pressure 150/67 H 149/67 H Pulse Oximetry 99 Oxygen Delivery Method Oxygen Flow Rate 05/16/23 20:30 05/16/23 21:01 05/16/23 21:03 Temperature Pulse Rate 82 80 Respiratory Rate 24 Blood Pressure 158/72 H Pulse Oximetry 98 99 Oxygen Delivery Method Oxygen Flow Rate 05/16/23 21:03 05/16/23 21:30 05/16/23 21:30 Temperature Pulse Rate 76 76 Respiratory Rate 27 H 17 Blood Pressure 144/67 H Pulse Oximetry 99 85 L Oxygen Delivery Method Oxygen Flow Rate 05/16/23 22:00 05/16/23 22:00 05/16/23 22:30 Temperature Pulse Rate 72 Respiratory Rate 16 Blood Pressure 155/72 H 171/81 H Pulse Oximetry 93 Oxygen Delivery Method Nasal Cannula Oxygen Flow Rate 1 05/16/23 22:30 05/16/23 23:00 05/16/23 23:00 Temperature Pulse Rate 74 75 Respiratory Rate 27 H 24 Blood Pressure 144/70 H Pulse Oximetry 99 100 Oxygen Delivery Method Oxygen Flow Rate 05/16/23 23:30 05/16/23 23:30 Temperature Pulse Rate 74 Respiratory Rate 22 Blood Pressure 143/65 H Pulse Oximetry 99 Oxygen Delivery Method Room Air Oxygen Flow Rate Medical Decision Making Lab Data Lab results reviewed: Yes I reviewed the patient's lab results. 05/16/23 20:11 05/16/23 20:11 Labs: Lab Results 05/16/23 05/16/23 Range/Units 20:11 20:11 WBC 9.8 (4.5-11.0) X10^3/uL RBC 4.70 (4.0-5.2) X10^6/uL Hgb 14.3 (12.0-16.0) g/dL Hct 40.5 (36-46) % MCV 86.1 (80-100) fL MCH 30.4 (26-34) PG MCHC 35.3 (30-36) % RDW 13.8 (11.6-14.8) % Plt Count 428 H (150-400) X10^3/uL Neut % (Auto) 48.7 L (50-75) % Lymph % (Auto) 39.6 (25-40) % [place] % (Auto) 11.2 (3-14) % Eos % (Auto) 0.1 L (2-4) % Baso % (Auto) 0.4 (0-2) % Neut # (Auto) 4800 (4860-0757) /uL Lymph # (Auto) 3900 (5722-4478) /uL [place] # (Auto) 1100 H (0-900) /uL Eos # (Auto) 0 (0-450) /uL Baso # (Auto) 0 (0-100) /uL Sodium 139 (137-145) mmol/L Potassium 2.8 L (3.4-5.1) mmol/L Chloride 97 L (98-107) mmol/L Carbon Dioxide 27 (22-32) mmol/L BUN 13 (7-17) mg/dL Creatinine 0.87 (0.52-1.04) mg/dL Estimated GFR > 60 (>60) mL/min BUN/Creatinine Ratio 14.9 (6-22) Glucose 153 H (80-110) mg/dL Calcium 10.3 H (8.4-10.2) mg/dL Total Bilirubin 0.7 (0.2-1.3) mg/dL AST 38 H (14-36) IU/L ALT 24 (<35) IU/L Alkaline Phosphatase 153 H (38-126) U/L Total Protein 8.8 H (6.3-8.2) g/dL Albumin 4.8 (3.5-5.0) g/dL Globulin 4.0 (1.7-4.1) g/dL Albumin/Globulin Ratio 1.2 (1.0-2.8) Lipase 103 (23-300) U/L Imaging Data CT scan - abdomen/pelvis: Radiologist's Impression: ROCEDURE:? CT ABDOMEN PELVIS W CON ? INDICATIONS:? upper abd pain and vomiting ? TECHNIQUE:? After the administration of intravenous contrast, axial sections acquired from the lung bases to the pubic symphysis.? Coronal and sagittal reformats were performed.? For radiation dose reduction, the following was used:? automated exposure control, adjustment of mA and/or kV according to patient size.? ? COMPARISON:? [facility], CT, ABDOMEN/PELVIS WITH CONTRAST, 07/04/2012, 13:04.? [facility], CT, ABDOMEN/PELVIS WITH CONTRAST, 10/15/2008, 13:35. ? FINDINGS:? Image quality:? Excellent.? ? Lung bases:? Status post right mastectomy.? Lung bases are clear. Heart:? No significant findings. ? ABDOMEN: Liver:? Multiple hypoattenuating lesions in the liver consistent with cysts.? ? Gallbladder:? Status post cholecystectomy.? ? Biliary ducts:? Prominence of the common bile duct is likely related to the prior cholecystectomy.? ? Pancreas:? Unremarkable.? ? Spleen:? Unremarkable.? ? Adrenal Glands:? Unremarkable.? ? Kidneys and Ureters:? Small simple appearing left renal cyst.? No hydronephrosis. ? Stomach and Bowel:? Multiple diverticula are seen in the colon with mild signs of acute diverticulitis.? There is mild thickening of the distal esophageal wall.? Small bowel loops are unremarkable.? Peritoneum:? No abnormal intraperitoneal fluid.? No free air.? ? Ventral Wall: ? No hernias.? Abdominal Nodes:? No retroperitoneal or mesenteric adenopathy by size criteria.? Vessels:? Aorta and inferior vena cava are normal in size.? ? PELVIS: Pelvic Organs:? Unremarkable.? ? Bladder:? Unremarkable.? ? Pelvic Nodes: No enlarged lymph nodes.? Miscellaneous:? Small fat containing inguinal hernias bilaterally.? ? Bones:? Postsurgical changes are noted in the lumbar spine.? There is multilevel spondylosis.? No definite aggressive osseous lesion is seen. ? ? IMPRESSION:? 1. Mild distal esophageal wall thickening is suspicious for esophagitis. 2. Colonic diverticulosis without signs of acute diverticulitis. ECG Data Attestation: I personally reviewed and interpreted this ECG as follows: Interpretation: Sinus rhythm Ventricular rate 85 Normal axis Normal QRS Normal QTC Nonspecific ST T wave changes MDM Narrative Medical decision making narrative: Patient reports improvement of symptoms after meclizine. Her vertigo to seem to be positional and is when she turns her head to the right. I have a high suspicion this is peripheral vertigo. Her abdominal CT scan shows thickening of the distal esophagus. This is consistent with her vomiting. There is no other acute pathology. Was able to tolerate oral intake after the Zofran and the meclizine. I do feel that we can hold on imaging studies of her head. Low suspicion for intracranial hemorrhage. Plan will be is to send home with nausea medication and meclizine. She was instructed that she needs to contact her primary doctor for a follow-up to discuss potential referral to see GI for her chronic abdominal pain and also ENT. She was given return precautions. She expressed understanding and agreement. Discharge Plan Departure Patient Disposition: Home Clinical Impression: Vertigo, Abdominal pain Instructions: DI for Vertigo Activity Restrictions/Additional Instructions: I do recommend that you use the medications as needed and as directed. Recommend that you contact your primary doctor for a follow-up. Return to the emergency department for new or worsening symptoms. Prescriptions: New meclizine 25 mg tablet 25 mg PO BID PRN (Reason: motion sickness) Qty: 14 0RF ondansetron 4 mg tablet,disintegrating 4 mg PO Q6H PRN (Reason: nausea and vomiting) Qty: 10 0RF No Action triamterene-hydrochlorothiazid [Dyazide] 37.5 MG/25 MG capsule 1 cap PO QDAY Qty: 90 3RF oxybutynin chloride 5 MG tablet 2.5 mg PO BID Qty: 30 11RF doxycycline hyclate 100 MG tablet 100 mg PO BID Qty: 40 0RF omeprazole 40 mg capsule,delayed release(DR/EC) 40 mg PO HS Qty: 30 5RF levothyroxine 88 mcg tablet 88 mcg PO SEE INSTRUCTIONS Qty: 30 11RF atenolol 50 mg tablet 50 mg PO QDAY Qty: 90 3RF potassium chloride [Klor-Con M20] 20 mEq tablet,ER particles/crystals 20 meq PO DAILY Qty: 30 2RF ondansetron 4 mg tablet,disintegrating 4 mg PO Q8H PRN (Reason: nausea and vomiting) Qty: 10 0RF meclizine 25 mg tablet 25 mg PO TID PRN (Reason: dizziness) Qty: 10 0RF Referrals: Garfield Edwards MD [Primary Care Provider] - Stand Alone Forms: Patient Portal/API
[2023-05-16] MEDS: SODIUM CHLORIDE 0.9% 1,000 ML 1000 ML IV (20:20)
[2023-05-16] MEDS: MECLIZINE HCL 12.5 MG TABLET 25 MG PO (20:22)
--- NOTE | 2023-05-16 20:27 | DI.CT.S_ITS ---
PROCEDURE: CT ABDOMEN PELVIS W CON INDICATIONS: upper abd pain and vomiting TECHNIQUE: After the administration of intravenous contrast, axial sections acquired from the lung bases to the pubic symphysis. Coronal and sagittal reformats were performed. For radiation dose reduction, the following was used: automated exposure control, adjustment of mA and/or kV according to patient size. COMPARISON: [facility], CT, ABDOMEN/PELVIS WITH CONTRAST, 07/04/2012, 13:04. [facility], CT, ABDOMEN/PELVIS WITH CONTRAST, 10/15/2008, 13:35. FINDINGS: Image quality: Excellent. Lung bases: Status post right mastectomy. Lung bases are clear. Heart: No significant findings. ABDOMEN: Liver: Multiple hypoattenuating lesions in the liver consistent with cysts. Gallbladder: Status post cholecystectomy. Biliary ducts: Prominence of the common bile duct is likely related to the prior cholecystectomy. Pancreas: Unremarkable. Spleen: Unremarkable. Adrenal Glands: Unremarkable. Kidneys and Ureters: Small simple appearing left renal cyst. No hydronephrosis. Stomach and Bowel: Multiple diverticula are seen in the colon with mild signs of acute diverticulitis. There is mild thickening of the distal esophageal wall. Small bowel loops are unremarkable. Peritoneum: No abnormal intraperitoneal fluid. No free air. Ventral Wall: No hernias. Abdominal Nodes: No retroperitoneal or mesenteric adenopathy by size criteria. Vessels: Aorta and inferior vena cava are normal in size. PELVIS: Pelvic Organs: Unremarkable. Bladder: Unremarkable. Pelvic Nodes: No enlarged lymph nodes. Miscellaneous: Small fat containing inguinal hernias bilaterally. Bones: Postsurgical changes are noted in the lumbar spine. There is multilevel spondylosis. No definite aggressive osseous lesion is seen. IMPRESSION: 1. Mild distal esophageal wall thickening is suspicious for esophagitis. 2. Colonic diverticulosis without signs of acute diverticulitis. Approved by: Sven Santana M.D. on 05/16/2023 at 22:18
[2023-05-16 20:36] LABS: Basophils Absolute Auto 0 /uL (0-100); Basophils Percent Auto 0.4 % (0-2); Eosinophils Absolute Auto 0 /uL (0-450); Eosinophils Percent Auto 0.1 % (2-4); Lymphocytes Absolute Auto 3900 /uL (1100-4500); Mean Corpuscular Volume 86.1 fL (80-100); Monocytes Absolute Auto 1100 /uL (0-900); Red Cell Distribution Width 13.8 % (11.6-14.8)
[2023-05-16 20:40] LABS: Add Manual Diff / Slide Review NO; Alanine Aminotransferase 24 IU/L (<35); Albumin 4.8 g/dL (3.5-5.0); Albumin Globulin Ratio 1.2 (1.0-2.8); Alkaline Phosphatase 153 U/L (38-126); Aspartate Aminotransferase 38 IU/L (14-36); BUN Creatinine Ratio 14.9 (6-22); Bilirubin Total 0.7 mg/dL (0.2-1.3); Blood Urea Nitrogen 13 mg/dL (7-17); Calcium 10.3 mg/dL (8.4-10.2); Carbon Dioxide 27 mmol/L (22-32); Chloride 97 mmol/L (98-107); Estimated Glomerular Filt Rate > 60 mL/min (>60); Glucose 153 mg/dL (80-110); HEMOLYSIS < 15 (0-50); Hematocrit 40.5 % (36-46); Hemoglobin 14.3 g/dL (12.0-16.0); Lipase 103 U/L (23-300); Lymphocytes Percent Auto 39.6 % (25-40); Mean Corpuscular HGB Conc 35.3 % (30-36); Mean Corpuscular Hemoglobin 30.4 PG (26-34); Monocytes Percent Auto 11.2 % (3-14); Neutrophils Absolute Auto 4800 /uL (1500-7000); Neutrophils Percent Auto 48.7 % (50-75); Platelet Count 428 X10^3/uL (150-400); Potassium 2.8 mmol/L (3.4-5.1); Sodium 139 mmol/L (137-145); Total Protein 8.8 g/dL (6.3-8.2); White Blood Cell Count 9.8 X10^3/uL (4.5-11.0)
[2023-05-16] MEDS: POTASSIUM CHLORIDE IN WATER 10 MEQ/100 ML PIGGYBACK 100 MEQ IV ×2 (21:04→22:15)
== END 2023-05-16 23:40 | disposition home or self-care (01) ==
PROVIDERS: Emergency Provider Emergency Medicine; PCP Family Medicine
DX: R10.13 Epigastric pain (principal); R42 Dizziness and giddiness
CPT/HCPCS: 36415; 74177; 80053; 83690; 85025; 93005; 96360; 96361; 99284; Q9967

== ENCOUNTER → 2023-10-18 14:06 | Outpatient (CLI) | payer MEDICARE, OTHER, SELFPAY ==
--- NOTE | 2023-10-18 14:10 | DI.RAD.S_ITS ---
PROCEDURE: XR CHEST 2V INDICATIONS: COUGH TECHNIQUE: 2 views of the chest were acquired. COMPARISON: [facility], CR, XR CHEST 2V, 11/11/2022, 9:36. [facility], CR, XR CHEST 2V, 06/19/2019, 18:11. FINDINGS: Surgical changes and devices: Right breast and axilla clips. Lungs and pleura: Lungs are clear. No pleural effusions or pneumothorax. Mediastinum: Mediastinal contours are normal. Heart size is normal. Bones and chest wall: No suspicious bony abnormalities. Soft tissues appear unremarkable. IMPRESSION: No consolidation identified. Dictated by: Bill Figueroa M.D. on 10/18/2023 at 14:49 Approved by: Bill Figueroa M.D. on 10/18/2023 at 14:52
== END ==
LOC: RAD 14:09
PROVIDERS: PCP Nurse Practitioner Family; Referring Provider Nurse Practitioner Family; Visit Provider Nurse Practitioner Family
DX: R05.3 Chronic cough (principal)
CPT/HCPCS: 71046

== ENCOUNTER → 2023-11-02 12:35 | Outpatient (CLI) | payer MEDICARE, OTHER, SELFPAY ==
--- NOTE | 2023-11-02 12:37 | DI.MG.S_ITS ---
UNILATERAL LEFT DIGITAL SCREENING MAMMOGRAM 3D/2D WITH CAD: 11/02/2023 CLINICAL: Routine screening. Personal history of right breast cancer. Comparison is made to exams dated: 03/19/2022 mammogram, 01/16/2021 mammogram, 01/07/2021 mammogram, 04/30/2020 mammogram, and 07/19/2018 mammogram - [facility]. There are scattered areas of fibroglandular density in the left breast (category b / 25%-50% glandular tissue). Current study was also evaluated with a Computer Aided Detection (CAD) system. There are vascular calcifications in the left breast. There is a focal asymmetry in the left breast central to the nipple middle depth. No other significant masses or calcifications are seen in the breast. IMPRESSION: INCOMPLETE: NEEDS ADDITIONAL IMAGING EVALUATION The focal asymmetry in the left breast is indeterminate. Additional views with possible ultrasound are recommended. This exam was interpreted at Station ID: [id number]. NOTE: For mammograms, a report in lay terms will be sent to the patient. Approximately 15% of breast malignancies will not be visualized mammographically. In the management of a palpable breast mass, a negative mammogram must not discourage biopsy of a clinically suspicious lesion. Electronically Signed By: Joselin Leblanc M.D. lk/:11/02/2023 13:32:07 copy to: HARDY HARMON letter sent: Additional Imaging Needed ACR BI-RADS Category 0: Incomplete 3340F
== END ==
LOC: MAMMO 12:36
PROVIDERS: PCP Nurse Practitioner Family; Referring Provider Nurse Practitioner Family; Visit Provider Nurse Practitioner Family
DX: Z12.31 Encounter for screening mammogram for malignant neoplasm of breast (principal); Z85.3 Personal history of malignant neoplasm of breast; N64.89 Other specified disorders of breast
CPT/HCPCS: 77063; 77067

== ENCOUNTER → 2023-12-16 07:59 | Outpatient (CLI) | payer MEDICARE, OTHER, SELFPAY ==
--- NOTE | 2023-12-16 08:01 | DI.CT.S_ITS ---
PROCEDURE: CT CHEST W CON INDICATIONS: LEFT BREAST LUMP/ LEFT BREAST CANCER TECHNIQUE: After the administration of intravenous contrast, 5 mm thick sections acquired from the pulmonary apices to the posterior costophrenic angles. 1 mm axial lung, 5 mm thick coronal and sagittal reformats and 7 mm axial MIP were acquired. For radiation dose reduction, the following was used: automated exposure control, adjustment of mA and/or kV according to patient size. COMPARISON: Merged With [facility], US, US BREAST LT LIMITED, 12/16/2023, 10:04. Merged With [facility], CT, CT CHEST WO CON, 06/25/2019, 8:45. FINDINGS: Image quality: Diagnostic. Lower Neck: No enlarged lymph nodes. Thyroid: No thyroid nodules which require sonographic follow up, per consensus guidelines. Axillae: No enlarged lymph nodes. Right axillary clips. Chest Wall: Right mastectomy. Small nodule in the left breast which likely corresponds to the mass seen on recent ultrasound, (2/33). Tiny left paramedian subcutaneous nodule measuring 0.7 cm, (2/19), unchanged. Suspect a sebaceous cyst. Bones: Unremarkable. Lungs and Pleura: No pneumothorax or pleural effusions. No consolidation or suspicious nodules. Left upper lobe ground-glass pulmonary nodule measuring 0.3 cm, (3/6), unchanged since 2019. There are a few additional pulmonary nodules measuring 0.4 cm or less. These also appear unchanged. Heart: Heart size is normal. No pericardial effusion. Thoracic Vessels: The aorta and pulmonary arteries demonstrate normal size. Mediastinum and Donna: No enlarged lymph nodes. Esophagus: Possible thickening at the distal esophagus, unchanged. No definite hiatal hernia. Upper Abdomen: Visualized upper abdomen solid organs and bowel loops appear normal. A few small hepatic cysts similar to 2019. Post cholecystectomy. IMPRESSION: 1. No metastatic disease identified. 2. Right mastectomy. Small nodule in the left breast which likely corresponds to the mass seen on recent ultrasound. No adenopathy. 3. A few pulmonary nodules measuring 0.4 cm or less are unchanged. 4. Question esophageal wall thickening. Recommend clinical correlation. If indicated this could be further evaluated with endoscopy. Dictated by: Bill Figueroa M.D. on 12/16/2023 at 11:23 Approved by: Bill Figueroa M.D. on 12/16/2023 at 11:43
--- NOTE | 2023-12-16 08:01 | DI.US.S_ITS ---
LIMITED ULTRASOUND OF LEFT BREAST AND AXILLA: 12/16/2023 CLINICAL: Patient returns today to evaluate a focal asymmetry in the left breast. Comparison is made to exams dated: 12/16/2023 mammogram, 11/02/2023 mammogram, and 03/19/2022 mammogram - [facility]. Color flow ultrasound of the left breast axilla was performed on the areas of interest. Muller scale images of the real-time examination were reviewed. There is a 0.7 cm x 0.6 cm x 1.3 cm irregular mass in the left breast at 4 o'clock anterior depth. This irregular mass is hypoechoic with internal echoes. This correlates with mammography findings. Color flow imaging demonstrates that there is vascularity present. The left axilla was interogated and normal appearing lymph nodes are visualized. IMPRESSION: SUSPICIOUS OF MALIGNANCY No left axillary adenopathy. The 0.7 cm x 0.6 cm x 1.3 cm irregular mass in the left breast is at a low suspicion for malignancy. An ultrasound guided biopsy is recommended. This exam was interpreted at Station ID: [id number]. SUMMARY: This was discussed with the patient by the radiologist Dr. Hanna at the time of the exam. Electronically Signed By: Joselin Leblanc M.D. lk/:12/16/2023 10:17:00 copy to: HARDY HARMON letter sent: Biopsy Required Ultrasound BI-RADS: 4a Low suspicion for malignancy
--- NOTE | 2023-12-16 08:01 | DI.MG.S_ITS ---
UNILATERAL LEFT DIGITAL DIAGNOSTIC MAMMOGRAM 3D/2D WITH ADDITIONAL VIEWS: 12/16/2023 CLINICAL: Additional evaluation requested from prior study. Comparison is made to exams dated: 11/02/2023 mammogram, 03/19/2022 mammogram, and 01/07/2021 mammogram - [facility]. There are scattered areas of fibroglandular density in the left breast (category b / 25%-50% glandular tissue). There are vascular calcifications in the left breast. The focal asymmetry in the left breast at 5 o'clock anterior depth is seen in additional views. No other significant masses or calcifications are seen in the breast. IMPRESSION: INCOMPLETE: NEEDS ADDITIONAL IMAGING EVALUATION The focal asymmetry in the left breast is indeterminate. A targeted ultrasound of the left breast is recommended and will be performed immediately following this exam. This exam was interpreted at Station ID: [id number]. NOTE: For mammograms, a report in lay terms will be sent to the patient. Approximately 15% of breast malignancies will not be visualized mammographically. In the management of a palpable breast mass, a negative mammogram must not discourage biopsy of a clinically suspicious lesion. Electronically Signed By: Joselin Leblanc M.D. lk/:12/16/2023 09:51:32 copy to: HARDY DELGADILLO BI-RADS Category 0: Incomplete 3340F
[2023-12-16 08:30] LABS: Estimated Glomerular Filt Rate > 60 mL/min (>60)
== END ==
PROVIDERS: Radiology Diagnostic Radiology; PCP Nurse Practitioner Family; Referring Provider Nurse Practitioner Family; Visit Provider Nurse Practitioner Family
DX: N63.23 Unspecified lump in the left breast, lower outer quadrant (principal); R92.8 Other abnormal and inconclusive findings on diagnostic imaging of breast; R92.322 Mammographic fibroglandular density, left breast; Z85.3 Personal history of malignant neoplasm of breast; R05.2 Subacute cough; R91.8 Other nonspecific abnormal finding of lung field; K76.89 Other specified diseases of liver; Z90.11 Acquired absence of right breast and nipple; Z90.49 Acquired absence of other specified parts of digestive tract
CPT/HCPCS: 36415; 71260; 76642; 77065; 82565; G0279; Q9967

== ENCOUNTER → 2024-01-10 13:56 | Outpatient (CLI) | payer MEDICARE, OTHER, SELFPAY ==
--- NOTE | 2024-01-10 | PATH_ITS ---
[facility] Accession Number: [id number] No. of containers..01 Tissue . 01 Material submitted: . breast - LEFT BREAST 4:00 1CMFN MASS . 01 Clinical history: . LEFT BREAST 4:00 1CNFN MASS . 01 Diagnosis: LEFT BREAST, 4 O'CLOCK, 1 CM FN MASS, ULTRASOUND-GUIDED BIOPSIES: Benign breast parenchyma with dense hyalinizing stromal fibrosis and focal mild chronic periductal inflammation. Negative for in situ and negative for invasive carcinoma. MRV 01/13/2024 1518 Local . 01 Comment: Multiple deeper levels have been examined without evidence of atypia or malignancy. . Clinical and radiologic correlation is recommended to ensure that the area of interest has been adequately sampled. . Selected slides were also reviewed by Dr. Cam Puente, who concurs with the diagnosis. . 01 Electronically signed: . Dolly Beltrán MD, Pathologist NPI- [id number] . 01 Gross description: . Received is one formalin-filled container labeled with the patient's name designated left breast 4 o'clock 1 cm FN mass. The specimen received in a plastic filter. The specimen consists of three fragments of yellow-zavala soft tissue which range in size from 0.6 x 0.4 x 0.4 to 1.5 x 0.4 x 0.4 cm. The tissue submitted in cassette A1. Also received is an aggregate of clotted blood which measures 1.5 x 1.5 x 0.2 cm. Clotted blood is submitted in cassette A2. . Possible collection date and time per requisition 01/10/2024 at 1517 hours. Total fixation time approximately 11 hours. (DC:[id number]) /SARAH 01/11/2024 0723 Local . 01 Pathologist provided ICD-10: R92.8, Z85.3 . 01 CPT . 482308 Performed at: [facility] [address] [place] [address], [place], [place] [id number] MD Jose Angel Du MD Phone: [phone]
--- NOTE | 2024-01-10 13:59 | DI.US.S_ITS ---
ULTRASOUND GUIDED BIOPSY LEFT BREAST USING VACUUM DEVICE WITH POST MAMMOGRAPHIC AND ULTRASOUND IMAGIN01/10/2024 CLINICAL: Left breast mass. PATIENT CONSENT: Risks (minor bleeding, infection, vasovagal reaction and repeat procedure), benefits and alternatives were explained to the patient and written informed consent was obtained. Correlation is made to exams dated: 12/16/2023 ultrasound, 12/16/2023 mammogram, 11/02/2023 mammogram, and 03/19/2022 mammogram - [facility]. An ultrasound guided biopsy using real-time ultrasound was performed for the oval mass located in the left breast at 4 o'clock anterior depth. This was described on the previous ultrasound report. The skin was prepped in the usual manner. Local anesthetic was administered to the access site. The abnormality was approached from the lateral aspect. A 13 gauge biopsy needle was placed adjacent to the abnormality under ultrasound guidance. Once the needle was documented to be in the correct location, five specimens were obtained using the Mammotome biopsy system. Post procedure mammographic and ultrasound imaging demonstrates the clip at the targeted area. The specimens were sent to the laboratory for pathological analysis. IMPRESSION: ULTRASOUND GUIDED BIOPSY BENIGN Ultrasound guided biopsy of the mass in the left breast was successful. Pathology revealed benign dense hyalinizing stromal fibrosis and focal mild chronic periductal inflammation. Pathology is concordant with imaging. Recommend routine annual mammogram screening in 1 year. This exam was interpreted at Station ID: [id number]. Kelli Bynum M.D., Ph.D. fx,eb/:01/17/2024 22:54:05 copy to: HARDY HARMON
--- NOTE | 2024-01-10 13:59 | DI.MG.S_ITS ---
UNILATERAL LEFT DIGITAL DIAGNOSTIC MAMMOGRAM 3D/2D POST-PROCEDURE IMAGING FOR MARKER PLACEMENT: 01/10/2024 CLINICAL: Post left breast ultrasound biopsy, clip placement imaging. Comparison is made to exams dated: 12/16/2023 mammogram, 11/02/2023 mammogram, and 03/19/2022 mammogram - [facility]. There are scattered areas of fibroglandular density in the left breast (category b / 25%-50% glandular tissue). There is a biopsy marker in the left breast at the biopsy site. IMPRESSION: POST PROCEDURE MAMMOGRAM FOR MARKER PLACEMENT A biopsy marker at the biopsy site. This exam was interpreted at Station ID: [id number]. NOTE: For mammograms, a report in lay terms will be sent to the patient. Approximately 15% of breast malignancies will not be visualized mammographically. In the management of a palpable breast mass, a negative mammogram must not discourage biopsy of a clinically suspicious lesion. Electronically Signed By: Kelli Hanna M.D. fx/:01/10/2024 15:51:47 copy to: HARDY HARMON ACR BI-RADS Category Post-procedure mammogram for marker placement
== END ==
PROVIDERS: PCP Nurse Practitioner Family; Referring Provider Nurse Practitioner Family; Visit Provider Nurse Practitioner Family
DX: R92.8 Other abnormal and inconclusive findings on diagnostic imaging of breast (principal); R92.321 Mammographic fibroglandular density, right breast; Z85.3 Personal history of malignant neoplasm of breast; N60.32 Fibrosclerosis of left breast
CPT/HCPCS: 19083; 77065